=== PATIENT | female | born 1965 | race Asian ===

== ENCOUNTER 2017-02-22 09:41 | Emergency (ER) | payer OTHER ==
[~2017-02-22] VITALS: Ht 152.4 cm; Wt 54.4 kg
[2017-02-22] MEDS ORDERED: LORAZEPAM INJ 2 MG/ML VIAL ONE (09:44)
[2017-02-22 10:00] VITALS: BP 121/70
[2017-02-22] MEDS ORDERED: IBUPROFEN 400 MG TABLET ONE (10:09)
[2017-02-22] MEDS ORDERED: AMOX/CLAVULANATE 875 MG TABLET ONE (10:09)
[2017-02-22] MEDS ORDERED: IBUPROFEN 400 MG TABLET PO ONE (10:30)
[2017-02-22] MEDS ORDERED: AMOX/CLAVULANATE 875 MG TABLET PO ONE (10:30)
== END 2017-02-22 10:42 | disposition home or self-care (01) ==
LOC: ER 09:43
DX: S51.851A Open bite of right forearm, initial encounter (principal); W54.0XXA Bitten by dog, initial encounter; Y93.89 Activity, other specified; Y92.89 Other specified places as the place of occurrence of the external cause; Y99.9 Unspecified external cause status
CPT/HCPCS: 73090; 99284; A4606; A6402; A6403; Z7610; J2060

== ENCOUNTER 2018-04-09 19:48 | Emergency (ER) | payer OTHER ==
[~2018-04-09] VITALS: Ht 160 cm; Wt 54.4 kg
[2018-04-09 19:50] VITALS: BP 114/76
[2018-04-09] MEDS ORDERED: AMOX/CLAVULANATE 875 MG TABLET ONE (20:55)
[2018-04-09] MEDS ORDERED: AMOX/CLAVULANATE 875 MG TABLET PO ONE (21:00)
== END 2018-04-09 21:03 | disposition home or self-care (01) ==
LOC: ER 19:48
DX: S51.852A Open bite of left forearm, initial encounter (principal); W54.0XXA Bitten by dog, initial encounter; Y93.89 Activity, other specified; Y92.89 Other specified places as the place of occurrence of the external cause; Y99.8 Other external cause status
CPT/HCPCS: 99283; A4606; A6402; Z7610; L3763